=== PATIENT | male | born 1975 | race Caucasian/White ===

== ENCOUNTER 2021-02-13 20:46 | Inpatient (IN) | payer MEDICAID, OTHER ==
[~2021-02-13] VITALS: Ht 188 cm; Wt 117.5 kg
[~2021-02-13 20:46] MED LIST: BACIO; DIVA-112 PO; QUET200T PO; QUET300T2 PO; SERT-158 PO
[2021-02-13 23:50] LABS: ANION GAP 9 mmol/L (8-16); CALCIUM, TOTAL 8.7 mg/dL (8.8-10.5); CARBON DIOXIDE 27 mmol/L (22-29); CHLORIDE 100 mmol/L (98-107); CREATININE 0.98 mg/dL (0.60-1.30); GLOMERULAR FILTR. RATE CALC > 60 mL/min (>60); GLUCOSE,RANDOM 218 mg/dL (70-110); POTASSIUM 3.9 mmol/L (3.5-5.1); SODIUM SERUM 136 mmol/L (136-145); UREA NITROGEN, BLOOD 12 mg/dL (7-18)
[2021-02-13 23:55] LABS: ALANINE AMINOTRANSFERASE 24 U/L (12-78); ALBUMIN 3.5 g/dL (3.4-5.0); ALKALINE PHOSPHATASE 115 U/L (46-116); ASPARTATE AMINOTRANSFERASE 15 U/L (15-37); BILIRUBIN,TOTAL 0.4 mg/dL (0.1-1.0); TOTAL PROTEIN, SERUM 7.9 g/dL (6.4-8.2)
[2021-02-14] MEDS ORDERED: INSULIN REGULAR, HUMAN 100 UNITS/ML SQ ONE
[2021-02-14] MEDS ORDERED: HALOPERIDOL 5 MG TABLET PO ONE
[2021-02-14] MEDS ORDERED: DiphenhydrAMINE HCL 25 MG CAPSULE PO ONE
[2021-02-14] MEDS ORDERED: ZOLPIDEM TARTRATE 10 MG TABLET PO PRN (00:15)
[2021-02-14] MEDS ORDERED: HALOPERIDOL 5 MG TABLET PO PRN (00:15)
[2021-02-14 00:19] LABS: BASOPHILS % (AUTO) 0.8 % (0.0-2.0); EOSINOPHILS % (AUTO) 1.4 % (1.0-6.0); HEMATOCRIT 40.8 % (41-53); LYMPHOCYTES # (AUTO) 2.1 K/uL (1.0-4.8); LYMPHOCYTES % (AUTO) 23.6 % (22.0-44.0); MEAN CORPUSCULAR HEMOGLOBIN 34.8 pg (26.0-34.0); MEAN CORPUSCULAR HGB CONC 34.4 G/dL (31.0-37.0); MEAN CORPUSCULAR VOLUME 101 fL (80-100); MONOCYTES # (AUTO) 0.8 K/uL (0.1-1.0); NEUTROPHILS # (AUTO) 5.8 K/uL (1.8-7.7); NEUTROPHILS % (AUTO) 65.2 % (40.0-70.0); PLATELET COUNT (AUTO) 291 K/uL (150-450); RED BLOOD CELL COUNT(AUTO) 4.03 MIL/uL (4.50-5.90); RED CELL DISTRIBUTION WIDTH 13.5 % (11.5-14.5)
[2021-02-14 02:35] LABS: COVID AG,FIA SOURCE NASOPHARYNGEAL
[2021-02-14 03:16] LABS: APPEARANCE,URINE TURBID (CLEAR); GLUCOSE, URINE (UA) 500 mg/dL (NEGATIVE); KETONES,URINE 40 mg/dL (NEGATIVE); LEUKOCYTE ESTERASE ,URINE NEGATIVE (NEGATIVE); NITRATE,URINE NEGATIVE (NEGATIVE); OCCULT BLOOD,URINE NEGATIVE (NEGATIVE); PH,URINE 5.5 (5.0-8.0); PROTEIN,URINE TRACE (NEGATIVE)
[2021-02-14 03:17] LABS: BILIRUBIN,URINE PRELIM. POSITIVE (NEGATIVE)
[2021-02-14 03:21] LABS: AMPHET/METH SCREEN,URINE POSITIVE (NEGATIVE); BARBITURATE SCREEN, URINE NEGATIVE (NEGATIVE); BENZODIAZEPINES SCREEN,URINE NEGATIVE (NEGATIVE); CANNABINOID SCREEN,URINE NEGATIVE (NEGATIVE); COCAINE SCREEN,URINE NEGATIVE (NEGATIVE); METHADONE SCREEN, URINE NEGATIVE (NEGATIVE); OPIATE SCREEN,URINE NEGATIVE (NEGATIVE)
[2021-02-14 03:22] LABS: PHENCYCLIDINE SCREEN,URINE NEGATIVE (NEGATIVE)
[2021-02-14 03:24] LABS: AMORPHOUS SEDIMENT,UR Moderate /LPF (None Seen); BACTERIA,URINE Few /HPF (None Seen); RBC,URINE 0-2 /HPF (0-2); SQUAMOUS EPITHELIAL CELL,UR None Seen /LPF (None Seen); WBC,URINE 0-2 /HPF (0-5)
[2021-02-14] MEDS: LORazepam 2 MG TABLET PO PRN (03:39)
[2021-02-14 20:05] VITALS: BP 127/94
[2021-02-14] MEDS: INSULIN LISPRO 100 UNITS/ML SQ PRN (22:12)
[2021-02-14] MEDS ORDERED: PNEUMOCOCCAL VACCINE POLYVALENT 0.5 ML VIAL [PPSV23] IM. ONE (22:15)
[2021-02-14 22:22] LABS: GLUCOMETER DEV NAME(LOC) 3E.I 2; GLUCOSE,POINT OF CARE 245 MG/DL (70-110)
[2021-02-15 06:23] LABS: GLUCOMETER DEV NAME(LOC) 3E.I 2; GLUCOSE,POINT OF CARE 218 MG/DL (70-110)
[2021-02-15] MEDS: INSULIN LISPRO 100 UNITS/ML SQ PRN ×4 (06:51→21:16)
[2021-02-15] MEDS ORDERED: GuaiFENesin/D-METHORPHAN [SUGAR-FREE] 200-20MG/10 ML SYRUP UDCUP PO PRN (07:15)
[2021-02-15] MEDS ORDERED: ONDANSETRON HCL 4 MG TABLET PO PRN (07:15)
[2021-02-15] MEDS ORDERED: ACETAMINOPHEN 325 MG TABLET PO PRN (07:15)
[2021-02-15] MEDS ORDERED: DOCUSATE SODIUM 100 MG CAPSULE PO PRN (07:15)
[2021-02-15] MEDS ORDERED: MAG HYDROX/AL HYDROX/SIMETH ES 30 ML SUSPENSION UDCUP PO PRN (07:15)
[2021-02-15] MEDS ORDERED: LOPERAMIDE HCL 2 MG CAPSULE PO PRN (07:15)
[2021-02-15] MEDS ORDERED: NICOTINE 14 MG/24 HOUR PATCH TD PRN (07:15)
[2021-02-15] MEDS ORDERED: PETROLATUM,WHITE 28 GM JELLY TP PRN (07:15)
[2021-02-15] MEDS ORDERED: MAGNESIUM HYDROXIDE SUSPENSION 30 ML UDCUP PO PRN (07:15)
[2021-02-15] MEDS ORDERED: IBUPROFEN 400 MG TABLET PO PRN (07:15)
[2021-02-15] MEDS ORDERED: CloNIDine HCL 0.1 MG TABLET PO PRN (07:15)
[2021-02-15] MEDS ORDERED: ALBUTEROL SULFATE HFA 90 MCG/PUFF 8 GM INHALER IH PRN (07:15)
[2021-02-15 07:43] LABS: CHOL/HDL RATIO 3.5 (4.2-7.3)
[2021-02-15 09:27] VITALS: BP_DIAS 68
[2021-02-15] MEDS: SERTRALINE HCL 50 MG TABLET PO SCH (11:24)
[2021-02-15 11:27] LABS: GLUCOMETER DEV NAME(LOC) 3E.I 2; GLUCOSE,POINT OF CARE 301 MG/DL (70-110)
[2021-02-15 16:03] VITALS: BP 113/80
[2021-02-15 16:55] LABS: GLUCOMETER DEV NAME(LOC) 3E.I 2; GLUCOSE,POINT OF CARE 185 MG/DL (70-110)
[2021-02-15 21:03] LABS: GLUCOMETER DEV NAME(LOC) 3E.I 2; GLUCOSE,POINT OF CARE 242 MG/DL (70-110)
[2021-02-16 05:20] VITALS: BP 137/82
[2021-02-16] MEDS: LORazepam 2 MG TABLET PO PRN (05:20)
[2021-02-16 06:43] LABS: GLUCOMETER DEV NAME(LOC) 3E.I 2; GLUCOSE,POINT OF CARE 232 MG/DL (70-110)
[2021-02-16] MEDS: INSULIN LISPRO 100 UNITS/ML SQ PRN ×4 (06:57→21:10)
[2021-02-16 09:00] VITALS: BP 140/82
[2021-02-16] MEDS: SERTRALINE HCL 50 MG TABLET PO SCH (09:04)
[2021-02-16 11:28] LABS: GLUCOMETER DEV NAME(LOC) 3E.I 2; GLUCOSE,POINT OF CARE 301 MG/DL (70-110)
[2021-02-16 16:41] VITALS: BP 137/83
[2021-02-16] MEDS: MetFORMIN HCL 500 MG TABLET PO SCH (17:09)
[2021-02-16 17:15] LABS: GLUCOMETER DEV NAME(LOC) 3E.I 2; GLUCOSE,POINT OF CARE 222 MG/DL (70-110)
[2021-02-16 21:24] LABS: GLUCOMETER DEV NAME(LOC) 3E.I 2; GLUCOSE,POINT OF CARE 247 MG/DL (70-110)
[2021-02-17 04:07] VITALS: BP 146/99
[2021-02-17] MEDS: LORazepam 2 MG TABLET PO PRN ×2 (04:07→09:26)
[2021-02-17] MEDS: MetFORMIN HCL 500 MG TABLET PO SCH (06:41)
[2021-02-17 06:46] LABS: GLUCOMETER DEV NAME(LOC) 3E.I 2; GLUCOSE,POINT OF CARE 210 MG/DL (70-110)
[2021-02-17] MEDS: INSULIN LISPRO 100 UNITS/ML SQ PRN ×2 (06:47→11:50)
[2021-02-17 08:00] VITALS: BP 152/90
[2021-02-17] MEDS: SERTRALINE HCL 50 MG TABLET PO SCH (08:30)
[2021-02-17 11:56] LABS: GLUCOMETER DEV NAME(LOC) 3E.I 2; GLUCOSE,POINT OF CARE 193 MG/DL (70-110)
[2021-02-17] MEDS ORDERED: METF-960 PO (12:52)
[2021-02-17 16:00] VITALS: BP 116/83
[2021-02-17 16:46] LABS: GLUCOMETER DEV NAME(LOC) 3E.I 2; GLUCOSE,POINT OF CARE 224 MG/DL (70-110)
== END 2021-02-17 16:35 | disposition home or self-care (01) | DRG 750 ==
LOC: EMS 20:48 → 3EI 02-14 00:14
PROVIDERS: ADMIT Psychiatry & Neurology Psychiatry; ATTEND Psychiatry & Neurology Psychiatry
DX: F25.1 Schizoaffective disorder, depressive type (principal); R45.851 Suicidal ideations; E11.65 Type 2 diabetes mellitus with hyperglycemia; F17.200 Nicotine dependence, unspecified, uncomplicated; Z20.822 Contact with and (suspected) exposure to COVID-19; E66.9 Obesity, unspecified; Z68.33 Body mass index [BMI] 33.0-33.9, adult; I10 Essential (primary) hypertension; F15.10 Other stimulant abuse, uncomplicated
CPT/HCPCS: 80053; 80061; 81001; 82962; 83036; 85025; 99285; G0480; J1815

== ENCOUNTER 2021-04-02 14:39 | Inpatient (IN) | payer MEDICAID ==
[~2021-04-02] VITALS: Ht 182.9 cm; Wt 117.0 kg
[~2021-04-02 14:39] MED LIST changes: -BACIO; -DIVA-112 PO; +METF-960 PO; -QUET200T PO; -QUET300T2 PO
[2021-04-02] MEDS ORDERED: ZOLPIDEM TARTRATE 10 MG TABLET PO PRN (18:15)
[2021-04-02] MEDS ORDERED: HALOPERIDOL 5 MG TABLET PO PRN (18:15)
[2021-04-02 19:26] VITALS: BP 138/78
[2021-04-02 19:26] LABS: GLUCOMETER DEV NAME(LOC) BV2S.; GLUCOSE,POINT OF CARE 368 MG/DL (70-110)
[2021-04-02] MEDS: MetFORMIN HCL 500 MG TABLET PO SCH (20:57)
[2021-04-02] MEDS ORDERED: THIA100T80 PO (22:15)
[2021-04-02] MEDS ORDERED: INSLAN SQ (22:15)
[2021-04-02] MEDS ORDERED: INSU100V SQ (22:15)
[2021-04-02] MEDS ORDERED: FOLI0.4T6 PO (22:15)
[2021-04-02] MEDS ORDERED: OLAN10TA74 PO (22:15)
[2021-04-02] MEDS ORDERED: QUET200T PO (22:15)
[2021-04-02] MEDS ORDERED: BUSP5TAB20 PO (22:15)
[2021-04-03 01:21] VITALS: BP 136/69
[2021-04-03 06:15] LABS: GLUCOMETER DEV NAME(LOC) BV2S.; GLUCOSE,POINT OF CARE 239 MG/DL (70-110)
[2021-04-03] MEDS: MetFORMIN HCL 500 MG TABLET PO SCH ×2 (06:49→16:29)
[2021-04-03] MEDS ORDERED: MetFORMIN HCL 500 MG TABLET PO SCH (07:00)
[2021-04-03 07:50] LABS: BASOPHILS % (AUTO) 1.1 % (0.0-2.0); EOSINOPHILS % (AUTO) 3.6 % (1.0-6.0); HEMATOCRIT 37.5 % (41-53); HEMOGLOBIN 12.9 g/dL (13.5-17.5); LYMPHOCYTES # (AUTO) 2.4 K/uL (1.0-4.8); LYMPHOCYTES % (AUTO) 29.9 % (22.0-44.0); MEAN CORPUSCULAR HEMOGLOBIN 34.2 pg (26.0-34.0); MEAN CORPUSCULAR HGB CONC 34.5 G/dL (31.0-37.0); MEAN CORPUSCULAR VOLUME 99 fL (80-100); MONOCYTES # (AUTO) 0.8 K/uL (0.1-1.0); MONOCYTES % (AUTO) 10.2 % (2.0-9.0); NEUTROPHILS # (AUTO) 4.4 K/uL (1.8-7.7); NEUTROPHILS % (AUTO) 55.2 % (40.0-70.0); PLATELET COUNT (AUTO) 288 K/uL (150-450); RED BLOOD CELL COUNT(AUTO) 3.78 MIL/uL (4.50-5.90); RED CELL DISTRIBUTION WIDTH 12.4 % (11.5-14.5)
[2021-04-03 08:14] VITALS: BP 139/98
[2021-04-03 08:40] LABS: ALANINE AMINOTRANSFERASE 17 U/L (12-78); ALBUMIN 3.2 g/dL (3.4-5.0); ALKALINE PHOSPHATASE 85 U/L (46-116); ANION GAP 11 mmol/L (8-16); ASPARTATE AMINOTRANSFERASE 14 U/L (15-37); BILIRUBIN,TOTAL 0.1 mg/dL (0.1-1.0); CALCIUM, TOTAL 8.8 mg/dL (8.8-10.5); CARBON DIOXIDE 25 mmol/L (22-29); CHLORIDE 104 mmol/L (98-107); CHOL/HDL RATIO 3.4 (4.2-7.3); CHOLESTEROL 113 mg/dL (131-200); GLOMERULAR FILTR. RATE CALC > 60 mL/min (>60); GLUCOSE,RANDOM 236 mg/dL (70-110); HDL CHOLESTEROL 33 mg/dL (40-60); LDL CHOL (CALC.) 51 mg/dL (0-130); POTASSIUM 3.9 mmol/L (3.5-5.1); SODIUM SERUM 140 mmol/L (136-145); THYROID STIMULATING HORMONE 3.41 uIU/mL (0.36-3.74); TOTAL PROTEIN, SERUM 7.4 g/dL (6.4-8.2); TRIGLYCERIDES 145 mg/dL (15-150); UREA NITROGEN, BLOOD 17 mg/dL (7-18)
[2021-04-03 09:15] VITALS: BP 164/109
[2021-04-03 10:15] VITALS: BP 145/105
[2021-04-03] MEDS: SERTRALINE HCL 50 MG TABLET PO SCH (10:42)
[2021-04-03 11:15] VITALS: BP 139/97
[2021-04-03] MEDS: BusPIRone HCL 5 MG TABLET PO SCH ×2 (12:35→16:29)
[2021-04-03] MEDS ORDERED: ONDANSETRON HCL 4 MG TABLET PO PRN (12:45)
[2021-04-03] MEDS ORDERED: CloNIDine HCL 0.1 MG TABLET PO PRN (12:45)
[2021-04-03] MEDS ORDERED: IBUPROFEN 400 MG TABLET PO PRN (12:45)
[2021-04-03] MEDS ORDERED: GuaiFENesin/D-METHORPHAN [SUGAR-FREE] 200-20MG/10 ML SYRUP UDCUP PO PRN (12:45)
[2021-04-03] MEDS ORDERED: LOPERAMIDE HCL 2 MG CAPSULE PO PRN (12:45)
[2021-04-03] MEDS ORDERED: PETROLATUM,WHITE 28 GM JELLY TP PRN (12:45)
[2021-04-03] MEDS ORDERED: ALBUTEROL SULFATE HFA 90 MCG/PUFF 8 GM INHALER IH PRN (12:45)
[2021-04-03] MEDS ORDERED: GLUCAGON,HUMAN RECOMBINANT 1 MG VIAL IM PRN (12:45)
[2021-04-03] MEDS ORDERED: DOCUSATE SODIUM 100 MG CAPSULE PO PRN (12:45)
[2021-04-03] MEDS ORDERED: MAG HYDROX/AL HYDROX/SIMETH ES 30 ML SUSPENSION UDCUP PO PRN (12:45)
[2021-04-03] MEDS ORDERED: MAGNESIUM HYDROXIDE SUSPENSION 30 ML UDCUP PO PRN (12:45)
[2021-04-03] MEDS ORDERED: NICOTINE 14 MG/24 HOUR PATCH TD PRN (12:45)
[2021-04-03] MEDS ORDERED: ACETAMINOPHEN 325 MG TABLET PO PRN (12:45)
[2021-04-03] MEDS: INSULIN LISPRO 100 UNITS/ML SQ PRN ×2 (16:32→20:39)
[2021-04-03 16:44] LABS: GLUCOMETER DEV NAME(LOC) BV2S.; GLUCOSE,POINT OF CARE 310 MG/DL (70-110)
[2021-04-03 18:16] VITALS: BP 140/92
[2021-04-03] MEDS: QUEtiapine FUMARATE 200 MG TABLET PO SCH (20:36)
[2021-04-03] MEDS: OLANZapine 10 MG TABLET PO SCH (20:36)
[2021-04-03] MEDS: INSULIN GLARGINE,HUM.REC.ANLOG 100 UNITS/ML SQ SCH (20:39)
[2021-04-03 21:17] LABS: GLUCOMETER DEV NAME(LOC) BV2S.; GLUCOSE,POINT OF CARE 244 MG/DL (70-110)
[2021-04-04 05:03] VITALS: BP 159/92
[2021-04-04] MEDS: MetFORMIN HCL 500 MG TABLET PO SCH ×2 (06:37→16:29)
[2021-04-04 06:43] LABS: GLUCOMETER DEV NAME(LOC) BV2S.; GLUCOSE,POINT OF CARE 238 MG/DL (70-110)
[2021-04-04] MEDS: INSULIN LISPRO 100 UNITS/ML SQ PRN ×4 (06:47→20:54)
[2021-04-04 08:42] VITALS: BP 123/73
[2021-04-04] MEDS: BusPIRone HCL 5 MG TABLET PO SCH ×3 (09:01→16:29)
[2021-04-04] MEDS: SERTRALINE HCL 50 MG TABLET PO SCH (09:01)
[2021-04-04 11:40] LABS: GLUCOMETER DEV NAME(LOC) BV2S.; GLUCOSE,POINT OF CARE 243 MG/DL (70-110)
[2021-04-04] MEDS: LORazepam 2 MG TABLET PO PRN (15:00)
[2021-04-04 16:19] VITALS: BP 128/83
[2021-04-04 16:38] LABS: GLUCOMETER DEV NAME(LOC) BV2S.; GLUCOSE,POINT OF CARE 270 MG/DL (70-110)
[2021-04-04 20:33] LABS: GLUCOMETER DEV NAME(LOC) BV2S.; GLUCOSE,POINT OF CARE 252 MG/DL (70-110)
[2021-04-04] MEDS: OLANZapine 10 MG TABLET PO SCH (20:41)
[2021-04-04] MEDS: QUEtiapine FUMARATE 200 MG TABLET PO SCH (20:42)
[2021-04-04] MEDS: INSULIN GLARGINE,HUM.REC.ANLOG 100 UNITS/ML SQ SCH (20:53)
[2021-04-05 04:26] VITALS: BP 153/94
[2021-04-05] MEDS: MetFORMIN HCL 500 MG TABLET PO SCH ×2 (06:18→16:21)
[2021-04-05] MEDS: INSULIN LISPRO 100 UNITS/ML SQ PRN ×4 (06:46→20:33)
[2021-04-05 06:48] LABS: GLUCOMETER DEV NAME(LOC) BV2S.; GLUCOSE,POINT OF CARE 368 MG/DL (70-110)
[2021-04-05 07:52] LABS: AMPHET/METH SCREEN,URINE NEGATIVE (NEGATIVE); BARBITURATE SCREEN, URINE NEGATIVE (NEGATIVE); BENZODIAZEPINES SCREEN,URINE POSITIVE (NEGATIVE); CANNABINOID SCREEN,URINE NEGATIVE (NEGATIVE); COCAINE SCREEN,URINE NEGATIVE (NEGATIVE); METHADONE SCREEN, URINE NEGATIVE (NEGATIVE); OPIATE SCREEN,URINE NEGATIVE (NEGATIVE)
[2021-04-05 07:54] LABS: PHENCYCLIDINE SCREEN,URINE NEGATIVE (NEGATIVE)
[2021-04-05 08:10] VITALS: BP 111/67
[2021-04-05] MEDS: SERTRALINE HCL 50 MG TABLET PO SCH (08:55)
[2021-04-05] MEDS: BusPIRone HCL 5 MG TABLET PO SCH ×3 (08:55→16:21)
[2021-04-05 11:06] LABS: GLUCOMETER DEV NAME(LOC) BV2S.; GLUCOSE,POINT OF CARE 178 MG/DL (70-110)
[2021-04-05 16:14] VITALS: BP 120/86
[2021-04-05 16:40] LABS: GLUCOMETER DEV NAME(LOC) BV2S.; GLUCOSE,POINT OF CARE 320 MG/DL (70-110)
[2021-04-05] MEDS: INSULIN GLARGINE,HUM.REC.ANLOG 100 UNITS/ML SQ SCH (16:40)
[2021-04-05] MEDS: QUEtiapine FUMARATE 200 MG TABLET PO SCH (20:25)
[2021-04-05] MEDS: OLANZapine 10 MG TABLET PO SCH (20:25)
[2021-04-05 20:45] LABS: GLUCOMETER DEV NAME(LOC) BV2S.; GLUCOSE,POINT OF CARE 249 MG/DL (70-110)
[2021-04-06 01:53] VITALS: BP 128/81
[2021-04-06] MEDS: MetFORMIN HCL 500 MG TABLET PO SCH ×2 (06:24→16:33)
[2021-04-06] MEDS: INSULIN LISPRO 100 UNITS/ML SQ PRN ×4 (06:25→20:46)
[2021-04-06 06:26] LABS: GLUCOMETER DEV NAME(LOC) BV2S.; GLUCOSE,POINT OF CARE 189 MG/DL (70-110)
[2021-04-06 08:18] VITALS: BP 117/69
[2021-04-06] MEDS: BusPIRone HCL 5 MG TABLET PO SCH ×3 (09:12→16:33)
[2021-04-06] MEDS: SERTRALINE HCL 50 MG TABLET PO SCH (09:12)
[2021-04-06] MEDS: INSULIN GLARGINE,HUM.REC.ANLOG 100 UNITS/ML SQ SCH ×2 (09:14→16:47)
[2021-04-06 09:23] LABS: GLUCOMETER DEV NAME(LOC) BV2S.; GLUCOSE,POINT OF CARE 336 MG/DL (70-110)
[2021-04-06 11:35] LABS: GLUCOMETER DEV NAME(LOC) BV2S.; GLUCOSE,POINT OF CARE 287 MG/DL (70-110)
[2021-04-06] MEDS: LORazepam 2 MG TABLET PO PRN (15:06)
[2021-04-06 16:30] VITALS: BP 136/96
[2021-04-06 16:45] LABS: GLUCOMETER DEV NAME(LOC) BV2S.; GLUCOSE,POINT OF CARE 214 MG/DL (70-110)
[2021-04-06 20:17] LABS: GLUCOMETER DEV NAME(LOC) BV2S.; GLUCOSE,POINT OF CARE 230 MG/DL (70-110)
[2021-04-06] MEDS: QUEtiapine FUMARATE 200 MG TABLET PO SCH (20:40)
[2021-04-06] MEDS: OLANZapine 10 MG TABLET PO SCH (20:40)
[2021-04-07 01:08] VITALS: BP 127/83
[2021-04-07 05:57] LABS: GLUCOMETER DEV NAME(LOC) BV2S.; GLUCOSE,POINT OF CARE 194 MG/DL (70-110)
[2021-04-07] MEDS: MetFORMIN HCL 500 MG TABLET PO SCH ×2 (06:40→17:04)
[2021-04-07] MEDS: INSULIN LISPRO 100 UNITS/ML SQ PRN ×4 (06:41→20:15)
[2021-04-07 07:07] LABS: COVID AG,FIA SOURCE NASOPHARYNGEAL
[2021-04-07 08:30] VITALS: BP 109/67
[2021-04-07] MEDS: SERTRALINE HCL 50 MG TABLET PO SCH (09:30)
[2021-04-07] MEDS: BusPIRone HCL 5 MG TABLET PO SCH ×3 (09:30→17:04)
[2021-04-07] MEDS: INSULIN GLARGINE,HUM.REC.ANLOG 100 UNITS/ML SQ SCH ×2 (09:47→16:19)
[2021-04-07 10:10] LABS: GLUCOMETER DEV NAME(LOC) BV2S.; GLUCOSE,POINT OF CARE 247 MG/DL (70-110)
[2021-04-07 11:42] LABS: GLUCOMETER DEV NAME(LOC) BV2S.; GLUCOSE,POINT OF CARE 200 MG/DL (70-110)
[2021-04-07 16:19] VITALS: BP 122/86
[2021-04-07 16:37] LABS: GLUCOMETER DEV NAME(LOC) BV2S.; GLUCOSE,POINT OF CARE 325 MG/DL (70-110)
[2021-04-07] MEDS: QUEtiapine FUMARATE 200 MG TABLET PO SCH (20:03)
[2021-04-07] MEDS: OLANZapine 10 MG TABLET PO SCH (20:03)
[2021-04-07 21:27] LABS: GLUCOMETER DEV NAME(LOC) BV2S.; GLUCOSE,POINT OF CARE 220 MG/DL (70-110)
[2021-04-08 01:10] VITALS: BP 119/78
[2021-04-08] MEDS: MetFORMIN HCL 500 MG TABLET PO SCH ×2 (06:39→16:56)
[2021-04-08] MEDS: INSULIN LISPRO 100 UNITS/ML SQ PRN ×4 (06:52→21:05)
[2021-04-08 06:54] LABS: GLUCOMETER DEV NAME(LOC) BV2S.; GLUCOSE,POINT OF CARE 198 MG/DL (70-110)
[2021-04-08 08:30] VITALS: BP 105/60
[2021-04-08] MEDS: BusPIRone HCL 5 MG TABLET PO SCH ×3 (08:56→16:56)
[2021-04-08] MEDS: SERTRALINE HCL 50 MG TABLET PO SCH (08:56)
[2021-04-08] MEDS: INSULIN GLARGINE,HUM.REC.ANLOG 100 UNITS/ML SQ SCH ×2 (09:13→17:30)
[2021-04-08 09:21] LABS: GLUCOMETER DEV NAME(LOC) BV2S.; GLUCOSE,POINT OF CARE 264 MG/DL (70-110)
[2021-04-08 11:44] LABS: GLUCOMETER DEV NAME(LOC) BV2S.; GLUCOSE,POINT OF CARE 190 MG/DL (70-110)
[2021-04-08] MEDS: LORazepam 2 MG TABLET PO PRN (12:48)
[2021-04-08 16:25] VITALS: BP 121/61
[2021-04-08 17:45] LABS: GLUCOMETER DEV NAME(LOC) BV2S.; GLUCOSE,POINT OF CARE 241 MG/DL (70-110)
[2021-04-08] MEDS: QUEtiapine FUMARATE 200 MG TABLET PO SCH (20:17)
[2021-04-08] MEDS: OLANZapine 10 MG TABLET PO SCH (20:17)
[2021-04-08 21:29] LABS: GLUCOMETER DEV NAME(LOC) BV2S.; GLUCOSE,POINT OF CARE 198 MG/DL (70-110)
[2021-04-09 01:09] VITALS: BP 118/69
[2021-04-09] MEDS: INSULIN LISPRO 100 UNITS/ML SQ PRN ×4 (06:21→20:45)
[2021-04-09] MEDS: MetFORMIN HCL 500 MG TABLET PO SCH ×2 (06:22→16:27)
[2021-04-09 06:23] LABS: GLUCOMETER DEV NAME(LOC) BV2S.; GLUCOSE,POINT OF CARE 219 MG/DL (70-110)
[2021-04-09 08:38] VITALS: BP 108/67
[2021-04-09] MEDS: SERTRALINE HCL 50 MG TABLET PO SCH (11:36)
[2021-04-09] MEDS: BusPIRone HCL 5 MG TABLET PO SCH ×3 (11:36→16:27)
[2021-04-09] MEDS: INSULIN GLARGINE,HUM.REC.ANLOG 100 UNITS/ML SQ SCH ×2 (11:41→16:38)
[2021-04-09 11:51] LABS: GLUCOMETER DEV NAME(LOC) BV2S.; GLUCOSE,POINT OF CARE 261 MG/DL (70-110)
[2021-04-09 16:19] VITALS: BP 143/77
[2021-04-09 16:25] LABS: GLUCOMETER DEV NAME(LOC) BV2S.; GLUCOSE,POINT OF CARE 268 MG/DL (70-110)
[2021-04-09 20:17] LABS: GLUCOMETER DEV NAME(LOC) BV2S.; GLUCOSE,POINT OF CARE 221 MG/DL (70-110)
[2021-04-09] MEDS: QUEtiapine FUMARATE 200 MG TABLET PO SCH (20:32)
[2021-04-09] MEDS: OLANZapine 10 MG TABLET PO SCH (20:32)
[2021-04-10 00:48] VITALS: BP 136/78
[2021-04-10] MEDS: MetFORMIN HCL 500 MG TABLET PO SCH ×2 (06:59→16:16)
[2021-04-10 08:15] VITALS: BP 105/70
[2021-04-10] MEDS: SERTRALINE HCL 50 MG TABLET PO SCH (09:11)
[2021-04-10] MEDS: MULTIVITAMINS WITH MINERALS, THERAPEUTIC TABLET PO SCH (09:11)
[2021-04-10] MEDS: BusPIRone HCL 5 MG TABLET PO SCH ×3 (09:11→16:16)
[2021-04-10] MEDS: INSULIN GLARGINE,HUM.REC.ANLOG 100 UNITS/ML SQ SCH ×2 (09:23→16:22)
[2021-04-10 09:28] LABS: GLUCOMETER DEV NAME(LOC) BV2S.; GLUCOSE,POINT OF CARE 357 MG/DL (70-110)
[2021-04-10 11:38] LABS: GLUCOMETER DEV NAME(LOC) BV2S.; GLUCOSE,POINT OF CARE 311 MG/DL (70-110)
[2021-04-10] MEDS: INSULIN LISPRO 100 UNITS/ML SQ PRN ×3 (11:40→20:31)
[2021-04-10 16:24] VITALS: BP 117/75
[2021-04-10 16:29] LABS: GLUCOMETER DEV NAME(LOC) BV2S.; GLUCOSE,POINT OF CARE 216 MG/DL (70-110)
[2021-04-10] MEDS: OLANZapine 10 MG TABLET PO SCH (20:08)
[2021-04-10] MEDS: QUEtiapine FUMARATE 200 MG TABLET PO SCH (20:08)
[2021-04-10 20:25] LABS: GLUCOMETER DEV NAME(LOC) BV2S.; GLUCOSE,POINT OF CARE 246 MG/DL (70-110)
[2021-04-11 05:38] VITALS: BP 130/78
[2021-04-11 06:22] LABS: GLUCOMETER DEV NAME(LOC) BV2S.; GLUCOSE,POINT OF CARE 193 MG/DL (70-110)
[2021-04-11] MEDS: MetFORMIN HCL 500 MG TABLET PO SCH ×2 (06:53→16:17)
[2021-04-11] MEDS: INSULIN LISPRO 100 UNITS/ML SQ PRN ×4 (06:54→20:47)
[2021-04-11 08:14] VITALS: BP 100/66
[2021-04-11] MEDS: SERTRALINE HCL 50 MG TABLET PO SCH (09:17)
[2021-04-11] MEDS: MULTIVITAMINS WITH MINERALS, THERAPEUTIC TABLET PO SCH (09:17)
[2021-04-11] MEDS: BusPIRone HCL 5 MG TABLET PO SCH ×3 (09:17→16:17)
[2021-04-11] MEDS: INSULIN GLARGINE,HUM.REC.ANLOG 100 UNITS/ML SQ SCH ×2 (09:20→16:30)
[2021-04-11 09:28] LABS: GLUCOMETER DEV NAME(LOC) BV2S.; GLUCOSE,POINT OF CARE 229 MG/DL (70-110)
[2021-04-11 11:42] LABS: GLUCOMETER DEV NAME(LOC) BV2S.; GLUCOSE,POINT OF CARE 187 MG/DL (70-110)
[2021-04-11 16:15] VITALS: BP 127/82
[2021-04-11 16:45] LABS: GLUCOMETER DEV NAME(LOC) BV2S.; GLUCOSE,POINT OF CARE 208 MG/DL (70-110)
[2021-04-11] MEDS: QUEtiapine FUMARATE 200 MG TABLET PO SCH (20:04)
[2021-04-11] MEDS: OLANZapine 10 MG TABLET PO SCH (20:05)
[2021-04-11 22:45] LABS: GLUCOMETER DEV NAME(LOC) BV2S.; GLUCOSE,POINT OF CARE 241 MG/DL (70-110)
[2021-04-12 00:27] VITALS: BP 136/82
[2021-04-12 06:25] LABS: GLUCOMETER DEV NAME(LOC) BV2S.; GLUCOSE,POINT OF CARE 170 MG/DL (70-110)
[2021-04-12] MEDS: MetFORMIN HCL 500 MG TABLET PO SCH ×2 (06:51→16:36)
[2021-04-12] MEDS: INSULIN LISPRO 100 UNITS/ML SQ PRN ×4 (06:52→21:07)
[2021-04-12 08:12] VITALS: BP 112/57
[2021-04-12] MEDS: MULTIVITAMINS WITH MINERALS, THERAPEUTIC TABLET PO SCH (09:35)
[2021-04-12] MEDS: SERTRALINE HCL 50 MG TABLET PO SCH (09:35)
[2021-04-12] MEDS: BusPIRone HCL 5 MG TABLET PO SCH ×3 (09:35→16:36)
[2021-04-12] MEDS: INSULIN GLARGINE,HUM.REC.ANLOG 100 UNITS/ML SQ SCH ×2 (11:25→16:46)
[2021-04-12 11:26] LABS: GLUCOMETER DEV NAME(LOC) BV2S.; GLUCOSE,POINT OF CARE 199 MG/DL (70-110)
[2021-04-12 16:17] VITALS: BP 115/88
[2021-04-12 17:00] LABS: GLUCOMETER DEV NAME(LOC) BV2S.; GLUCOSE,POINT OF CARE 310 MG/DL (70-110)
[2021-04-12] MEDS: OLANZapine 10 MG TABLET PO SCH (20:09)
[2021-04-12] MEDS: QUEtiapine FUMARATE 200 MG TABLET PO SCH (20:09)
[2021-04-12 20:20] LABS: GLUCOMETER DEV NAME(LOC) BV2S.; GLUCOSE,POINT OF CARE 234 MG/DL (70-110)
[2021-04-13 01:07] VITALS: BP 124/86
[2021-04-13] MEDS: INSULIN LISPRO 100 UNITS/ML SQ PRN ×4 (06:57→20:18)
[2021-04-13] MEDS: MetFORMIN HCL 500 MG TABLET PO SCH ×2 (07:08→16:28)
[2021-04-13 08:27] VITALS: BP 134/18
[2021-04-13] MEDS: INSULIN GLARGINE,HUM.REC.ANLOG 100 UNITS/ML SQ SCH ×2 (09:00→18:02)
[2021-04-13] MEDS: SERTRALINE HCL 50 MG TABLET PO SCH (10:53)
[2021-04-13] MEDS: MULTIVITAMINS WITH MINERALS, THERAPEUTIC TABLET PO SCH (10:53)
[2021-04-13] MEDS: BusPIRone HCL 5 MG TABLET PO SCH ×3 (10:53→16:28)
[2021-04-13 11:33] LABS: GLUCOMETER DEV NAME(LOC) BV2S.; GLUCOSE,POINT OF CARE 192 MG/DL (70-110)
[2021-04-13 16:15] VITALS: BP 134/89
[2021-04-13 16:51] LABS: GLUCOMETER DEV NAME(LOC) BV2S.; GLUCOSE,POINT OF CARE 292 MG/DL (70-110)
[2021-04-13] MEDS: QUEtiapine FUMARATE 200 MG TABLET PO SCH (20:14)
[2021-04-13] MEDS: OLANZapine 10 MG TABLET PO SCH (20:14)
[2021-04-13 20:20] LABS: GLUCOMETER DEV NAME(LOC) BV2S.; GLUCOSE,POINT OF CARE 256 MG/DL (70-110)
[2021-04-14 01:06] VITALS: BP 128/81
[2021-04-14 06:23] LABS: GLUCOMETER DEV NAME(LOC) BV2S.; GLUCOSE,POINT OF CARE 238 MG/DL (70-110)
[2021-04-14] MEDS: INSULIN LISPRO 100 UNITS/ML SQ PRN ×4 (06:35→20:17)
[2021-04-14] MEDS: MetFORMIN HCL 500 MG TABLET PO SCH ×2 (06:49→16:37)
[2021-04-14 08:14] LABS: COVID AG,FIA SOURCE NASOPHARYNGEAL
[2021-04-14 09:07] VITALS: BP 110/69
[2021-04-14] MEDS: MULTIVITAMINS WITH MINERALS, THERAPEUTIC TABLET PO SCH (09:41)
[2021-04-14] MEDS: SERTRALINE HCL 50 MG TABLET PO SCH (09:41)
[2021-04-14] MEDS: BusPIRone HCL 5 MG TABLET PO SCH ×3 (09:41→16:37)
[2021-04-14] MEDS: INSULIN GLARGINE,HUM.REC.ANLOG 100 UNITS/ML SQ SCH ×2 (09:43→16:45)
[2021-04-14 09:52] LABS: GLUCOMETER DEV NAME(LOC) BV2S.; GLUCOSE,POINT OF CARE 271 MG/DL (70-110)
[2021-04-14 11:47] LABS: GLUCOMETER DEV NAME(LOC) BV2S.; GLUCOSE,POINT OF CARE 255 MG/DL (70-110)
[2021-04-14 16:27] VITALS: BP 126/82
[2021-04-14 16:29] LABS: GLUCOMETER DEV NAME(LOC) BV2S.; GLUCOSE,POINT OF CARE 267 MG/DL (70-110)
[2021-04-14] MEDS: OLANZapine 10 MG TABLET PO SCH (20:12)
[2021-04-14] MEDS: QUEtiapine FUMARATE 200 MG TABLET PO SCH (20:12)
[2021-04-14 20:58] LABS: GLUCOMETER DEV NAME(LOC) BV2S.; GLUCOSE,POINT OF CARE 309 MG/DL (70-110)
[2021-04-15 06:10] VITALS: BP 120/79
[2021-04-15] MEDS: MetFORMIN HCL 500 MG TABLET PO SCH ×2 (07:04→16:36)
[2021-04-15 07:09] LABS: GLUCOMETER DEV NAME(LOC) BV2S.; GLUCOSE,POINT OF CARE 153 MG/DL (70-110)
[2021-04-15] MEDS: INSULIN LISPRO 100 UNITS/ML SQ PRN ×4 (07:12→20:10)
[2021-04-15 08:20] VITALS: BP 126/88
[2021-04-15] MEDS: MULTIVITAMINS WITH MINERALS, THERAPEUTIC TABLET PO SCH (09:13)
[2021-04-15] MEDS: BusPIRone HCL 5 MG TABLET PO SCH ×3 (09:14→16:36)
[2021-04-15] MEDS: SERTRALINE HCL 50 MG TABLET PO SCH (09:14)
[2021-04-15] MEDS: INSULIN GLARGINE,HUM.REC.ANLOG 100 UNITS/ML SQ SCH ×2 (09:16→16:41)
[2021-04-15 09:25] LABS: GLUCOMETER DEV NAME(LOC) BV2S.; GLUCOSE,POINT OF CARE 244 MG/DL (70-110)
[2021-04-15 11:23] LABS: GLUCOMETER DEV NAME(LOC) BV2S.; GLUCOSE,POINT OF CARE 215 MG/DL (70-110)
[2021-04-15 16:14] VITALS: BP 129/81
[2021-04-15 16:47] LABS: GLUCOMETER DEV NAME(LOC) BV2S.; GLUCOSE,POINT OF CARE 235 MG/DL (70-110)
[2021-04-15] MEDS: QUEtiapine FUMARATE 200 MG TABLET PO SCH (20:05)
[2021-04-15] MEDS: OLANZapine 10 MG TABLET PO SCH (20:05)
[2021-04-15 20:15] LABS: GLUCOMETER DEV NAME(LOC) BV2S.; GLUCOSE,POINT OF CARE 244 MG/DL (70-110)
[2021-04-16 01:09] VITALS: BP 132/82
[2021-04-16] MEDS: MetFORMIN HCL 500 MG TABLET PO SCH (06:42)
[2021-04-16 06:46] LABS: GLUCOMETER DEV NAME(LOC) BV2S.; GLUCOSE,POINT OF CARE 186 MG/DL (70-110)
[2021-04-16] MEDS: INSULIN LISPRO 100 UNITS/ML SQ PRN ×2 (06:47→11:33)
[2021-04-16 08:19] VITALS: BP 100/60
[2021-04-16] MEDS: SERTRALINE HCL 50 MG TABLET PO SCH (08:52)
[2021-04-16] MEDS: BusPIRone HCL 5 MG TABLET PO SCH ×2 (08:52→12:59)
[2021-04-16] MEDS: MULTIVITAMINS WITH MINERALS, THERAPEUTIC TABLET PO SCH (08:53)
[2021-04-16] MEDS: INSULIN GLARGINE,HUM.REC.ANLOG 100 UNITS/ML SQ SCH (08:58)
[2021-04-16 09:04] LABS: GLUCOMETER DEV NAME(LOC) BV2S.; GLUCOSE,POINT OF CARE 281 MG/DL (70-110)
[2021-04-16 11:41] LABS: GLUCOMETER DEV NAME(LOC) BV2S.; GLUCOSE,POINT OF CARE 232 MG/DL (70-110)
[2021-04-16] MEDS ORDERED: QUET200T PO ×2 (12:22→12:26)
[2021-04-16] MEDS ORDERED: BUSP5TAB20 PO (12:22)
[2021-04-16] MEDS ORDERED: OLAN10TA74 PO ×2 (12:23→12:27)
[2021-04-16] MEDS ORDERED: SERT-158 PO (12:27)
[2021-04-16] MEDS ORDERED: METF-960 PO (12:55)
[2021-04-16] MEDS ORDERED: INSLAN SQ ×2 (12:56→12:59)
== END 2021-04-16 13:40 | disposition home or self-care (01) | DRG 750 ==
LOC: B2S 18:10
PROVIDERS: ADMIT Psychiatry & Neurology Child & Adolescent Psychiatry; ATTEND Psychiatry & Neurology Child & Adolescent Psychiatry
DX: F25.1 Schizoaffective disorder, depressive type (principal); R45.851 Suicidal ideations; E11.9 Type 2 diabetes mellitus without complications; E66.9 Obesity, unspecified; D64.9 Anemia, unspecified; F10.10 Alcohol abuse, uncomplicated; F32.9 Major depressive disorder, single episode, unspecified; I10 Essential (primary) hypertension; J45.909 Unspecified asthma, uncomplicated; F41.9 Anxiety disorder, unspecified; Z20.822 Contact with and (suspected) exposure to COVID-19; Z91.19 Patient's noncompliance with other medical treatment and regimen; Z59.0 Homelessness; Z68.35 Body mass index [BMI] 35.0-35.9, adult; Z79.899 Other long term (current) drug therapy
CPT/HCPCS: 80053; 80061; 80307; 82962; 83036; 84439; 84443; 85025; 87081; J1815